=== PATIENT | male | born 1985 | race Caucasian/White ===

== ENCOUNTER 2016-10-19 15:48 | Emergency (ER) | payer BC ==
[2016-10-19 15:55] VITALS: BP 116/66
--- NOTE | 2016-10-19 15:57 | EDM.PDOC ---
ED HPI Trauma - General Chief Complaint: Lower Extremity Injury/Pain Stated Complaint: left foot pain Time Seen by Provider: 10/19/16 15:50 Source: Reports: Patient History Limitations: Reports: No limitations - History of Present Illness INITIAL COMMENTS - FREE TEXT/NARRATIVE: The patient presents with complaint of pain and mild swelling of left foot. He dropped a hydraulic lift that weighs approximately 50 pounds from standing onto his left foot. He reports he had immediate pain and mild swelling and has not been able to bear weight or ambulate. He denies other injuries or complaints. Allergies/ADRs: Allergies No Known Allergies Allergy (Verified 10/19/16 15:56) Home Medications: Ambulatory Orders Multivitamin [Daily Dom] 1 each PO DAILY 10/19/16 [Confirmed 10/19/16] Past Medical History - Past Health History Medical/Surgical History: Denies Medical/Surgical History Social & Family History - Tobacco Use Years of Tobacco use: 10 Second Hand Smoke Exposure: Yes - Alcohol Use Days Per Week of Alcohol Use: 3 Number of Drinks Per Day: 2 Total Drinks Per Week: 6 - Recreational Drug Use Recreational Drug Use: No Review of Systems - Review of Systems Review Of Systems: ROS reveals no pertinent complaints other than HPI. Trauma Exam - Physical Exam Exam: See Below Exam Limited By: No limitations General Appearance: Reports: alert, WD/WN, no apparent distress Head: Reports: atraumatic, normocephalic Eyes: bilateral eye: EOMI, normal fundi, normal inspection, PERRL Ears: Reports: normal external exam, normal canal, hearing grossly normal, normal TMs Nose: Reports: normal inspection, normal mucousa, no blood Throat/Mouth: Reports: Normal inspection, Normal lips, Normal teeth, Normal gums , Normal oropharynx Neck: Reports: non-tender. Denies: tender lateral, tender midline Respiratory Exam: Reports: no respiratory distress, lungs clear, normal breath sounds, no accessory muscle use, chest non-tender Cardiovascular: Reports: normal peripheral pulses, regular rate, rhythm, no edema, no gallop, no murmur, no rub GI/Abdominal: Reports: normal bowel sounds, soft, non tender Back: Reports: full range of motion, non-tender. Denies: CVA tenderness (R), CVA tenderness (L), paraspinal tenderness, vertebral tenderness Extremities: Reports: other (Mild swelling and faint blue-purple contusion of dorsal foot. Diffuse pain on palpation of dorsal foot with no visible or palpable defects. Diffuse pain on palpation of toes 1-3, and no pain on palpation of toes 4-5. Sensation intact to LT and PP in all toes. DP pulse 2+. Capillary refill < 2 seconds in all toes. 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 No pronator drift of arms. No dysmetria. No clonus or spasticity.) Skin: Reports: Normal color, Warm/dry Course - Vital Signs Last Recorded V/S: Last Vital Signs Temp 36.4 C 10/19/16 15:49 Pulse 60 10/19/16 15:49 Resp 20 10/19/16 15:49 BP 116/66 10/19/16 15:49 Pulse Ox 100 10/19/16 15:49 - Orders/Labs/Meds Orders: Active Orders 24 hr Category Date Time Status Foot Comp Min 3V Lt [CR] Stat Exams 10/19/16 16:03 Taken Meds: Medications Discontinued Medications Generic Name Dose Route Start Last Admin Trade Name Freq PRN Reason Stop Dose Admin Morphine Sulfate 4 mg 10/19/16 16:04 10/19/16 16:09 Morphine IM 10/19/16 16:05 4 mg ONETIME ONE Administration - Radiology Interpretation Free Text/Narrative:: XR of left foot shows fracture of left proximal phalynx with no displacement. Departure - Departure Time of Disposition: 17:03 Disposition: Home, Self-Care 01 Clinical Impression: Closed fracture of proximal phalanx of left great toe Qualifiers: Encounter type: initial encounter Fracture alignment: nondisplaced Qualified Code(s): S92.415A - Nondisplaced fracture of proximal phalanx of left great toe , initial encounter for closed fracture Crush injury of left foot Qualifiers: Encounter type: initial encounter Qualified Code(s): S97.82XA - Crushing injury of left foot, initial encounter Forms: ED Department Discharge - My Orders Last 24 Hours: My Active Orders 10/19/16 16:03 Foot Comp Min 3V Lt [CR] Stat - Assessment/Plan Last 24 Hours: My Active Orders 10/19/16 16:03 Foot Comp Min 3V Lt [CR] Stat Assessment:: Closed fracture of proximal phalynx of left great toe. Crush injury of left foot. Plan: 1. Given morphine 4 mg IM in ER. 2. Elevated and iced foot in ER. 3. CAM walker boot applied in ER and prescription for crutches. 4. CAM walker boot at all times other than with hygiene and no weight bearing until cleared by sustainable communities designer. 5. OTC acetaminophen 325-1,000 mg every 6 hours PRN mild pain. Do not exceed 4, 000 mg daily. 6. Prescription for Tylenol #3, 1 tab every 4-6 hours PRN moderate pain, 10 tab , 0 refills. 7. Elevate and ice foot in 20 minute cycles every 1-2 hours as able and as tolerated. 8. Followup with [employer] Physics Teacher in 1-2 weeks. 9. Return to ER with severe/refractory/increased pain, severe swelling or increased pressure/tension of skin, pale or blue foot or toes, inability to move foot or toes.
[2016-10-19] MEDS ORDERED: Morphine 4 MG/ML Syringe IM ONE (16:04)
== END 2016-10-19 17:46 | disposition home or self-care (01) ==
LOC: LL.ED 15:48
DX: S92.415A Nondisplaced fracture of proximal phalanx of left great toe, initial encounter for closed fracture (principal); S97.82XA Crushing injury of left foot, initial encounter; W20.8XXA Other cause of strike by thrown, projected or falling object, initial encounter
CPT/HCPCS: 28490; 73630; 96372; 99283; J2270